=== PATIENT | female | born 1950 | race Caucasian/White ===

== ENCOUNTER 2019-08-20 06:33 | Inpatient (IN) | payer MEDICARE, BC, OTHER ==
[~2019-08-20] VITALS: Ht 162.6 cm; Wt 113.6 kg
[2019-08-20 06:59] LABS: BASOPHILS ABSOLUTE AUTO 0.06 K/mm3 (0.00-0.23); BASOPHILS PERCENT AUTO 0 % (0-2); EOSINOPHILS ABSOLUTE AUTO 0.28 K/mm3 (0.00-0.68); EOSINOPHILS PERCENT AUTO 2 % (0-6); Hematocrit 42.7 % (33.0-51.0); Hemoglobin 13.5 g/dL (11.5-16.0); IMMATURE GRAN ABSOLUTE AUTO 0.06 K/mm3 (0.00-0.10); IMMATURE GRAN PERCENT AUTO 0 % (0-1); LYMPHOCYTES ABSOLUTE AUTO 1.91 K/mm3 (0.84-5.20); LYMPHOCYTES PERCENT AUTO 13 % (21-46); MONOCYTES ABSOLUTE AUTO 0.68 K/mm3 (0.16-1.47); MONOCYTES PERCENT AUTO 5 % (4-13); Mean Corpuscular HGB 29.5 pg (26.0-34.0); Mean Corpuscular HGB Conc 31.6 g/dL (31.5-36.5); Mean Corpuscular Volume 93 fL (80-100); Mean Platelet Volume 10.8 fL (9.1-12.4); NEUTROPHILS ABSOLUTE AUTO 12.29 K/mm3 (1.96-9.15); NEUTROPHILS PERCENT AUTO 80 % (41-73); Platelet Count 202 K/mm3 (150-400); RDW Coefficient Variation 14.3 % (11.7-14.2); RDW Standard Deviation 48.8 fL (35.1-46.3); Red Blood Cell Count 4.57 M/mm3 (3.80-5.20); White Blood Cell Count 15.28 K/mm3 (4.00-11.30)
[2019-08-20 07:18] LABS: Alanine Aminotransfer (ALT/SGP 27 U/L (12-78); Albumin, Blood 3.4 g/dL (3.4-5.0); Albumin/Globulin Ratio 1.1 (0.8-1.8); Alk Phos 97 U/L (50-136); Anion Gap 6 mmol/L (6-16); Aspartate Aminotrans (AST/SGOT 24 U/L (12-37); Bilirubin, Total 0.3 mg/dL (0.1-1.0); Blood Urea Nitrogen 7 mg/dL (8-24); Bun/Creatinine Ratio 10.7 (12.0-20.0); CO2, Blood 27 mmol/L (21-32); Calcium, Blood 8.6 mg/dL (8.5-10.1); Chloride, Blood 106 mmol/L (98-108); Creatinine, Blood 0.65 mg/dL (0.40-1.00); Globulin, Blood 3.2 g/dL (2.2-4.0); Glomerular Filtration Rate >60 (60-); Glucose, Blood 121 mg/dL (70-99); Potassium, Blood 3.9 mmol/L (3.5-5.5); Sodium, Blood 139 mmol/L (136-145); Total Protein, Blood 6.6 g/dL (6.4-8.2); Troponin I <0.015 ng/mL (0.000-0.040)
[2019-08-20 07:26] LABS: Base Excess Venous 1.7 mmol/L; Bicarbonate Venous 24.3 mmol/L (24.0-30.0); PCO2 Venous 54.1 mmHg (38-42); PO2 Venous 38.1 mmHg (38-42); pH Blood Venous 7.32 (7.34-7.37)
[2019-08-20] MEDS ORDERED: Cymbalta20 MG PO ×2 (12:55→12:56)
[2019-08-20 12:56] LABS: CHOL/HDL RATIO 2.9; Cholesterol 174 mg/dL (50-200); HDL Cholesterol 60 mg/dL (>39); LDL/HDL RATIO 1.5; Low Density Lipoprotein Chol 91 mg/dL (0-110); Triglycerides 114 mg/dL (30-160); Very Low Density Lipoprot Chol 22 mg/dL (6-32)
[2019-08-20] MEDS ORDERED: OXYACE7.5T PO (12:56)
[2019-08-20] MEDS ORDERED: SYMBICORT 80-10.2 GM INH (12:58)
[2019-08-20] MEDS ORDERED: ALBU90OI INH (12:58)
[2019-08-20] MEDS ORDERED: IBUP600 PO (12:59)
[2019-08-20] MEDS ORDERED: LOVA40 PO (12:59)
[2019-08-20] MEDS ORDERED: CLON.5 PO (13:00)
[2019-08-20] MEDS ORDERED: GABA400 PO (13:00)
[2019-08-20] MEDS ORDERED: MIRT15 PO (13:00)
[2019-08-20] MEDS ORDERED: ASPIR 8181 M1 PO (13:01)
[2019-08-20] MEDS ORDERED: SPIRIVA RESPIMAT4 G3 INH (13:02)
[2019-08-20 15:52] LABS: Source, Urine Voided
[2019-08-20 16:03] LABS: Appearance, Urine Hazy (Clear); Bilirubin, Urine Neg (Neg); Blood, Urine 3+ (Neg); Color, Urine Yellow (P-Yellow); Glucose Qualitative, Urine Neg (Neg); Ketones, Urine Neg (Neg); Leukocyte Esterase, Urine Neg (Neg); Nitrite, Urine Neg (Neg); Protein, Urine 1+ (Neg); Urobilinogen, Urine NORM (Normal)
[2019-08-20 16:11] LABS: Bacteria Few /hpf; Squamous Epithelial Cells Few /hpf (Few); White Blood Cells, Urine 0-2 /hpf (0-5)
--- NOTE | 2019-08-20 16:14 | NUR ---
SHIFT SUMMARY PATIENT IS ALERT AND ORIENTED. SHE WAS ADMITTED FOR SHORTNESS OF BREATH WHICH HAS RESOLVED. SHE STATES THAT IT WAS JUST WORSE THAN NORMAL. SHE DOES HAVE COPD AND ASTHMA. SHE HAD PAIN THAT WAS IN HER ARM AND RADIATED TO HER NECK. NITRO DID NOT FIX IT SO SHE CAME TO THE ER. SHE WAS GIVEN NITRO IN THE AMBULANCE AND IT STILL DID NOT RESOLVE. PATIENT IS PLEASANT, SHE HAD PERCOCET DOWNSTAIRS. SHE DENIES ANY CONCERNS AT THIS TIME AND AWAITING ECHO RESULTS. SHE IS CURRENTLY RUNNING FLUIDS.
--- NOTE | 2019-08-21 04:33 | NUR ---
SHIFT SUMMARY A/O, ABLE TO MAKE NEEDS KNOWN. COOPERATIVE WITH CARE. CALLS AND ANSWERS QUESTIONS APPROPRIATELY. NO C/O PAIN/DISCOMFORT. INDEPENDENT IN ROOM. APPEARED TO REST MUCH OF SHIFT. STATES EAGER TO GO HOME. VSS/AFEBRILE. TELE RUNNING SR IN 70s. NO ACUTE CHANGES NOTED OVERNIGHT. BED REAMINED IN LOWEST POSITION. CALL LIGHT AND BELONGINGS WITHIN REACH. WCTM. REPORT TO ONCOMING RN.
--- NOTE | 2019-08-21 17:13 | NUR ---
PATIENT IS ALERT AND ORIENTED AND COOPERATIVE WITH CARE. SHE IS INDEPENDENT IN HER ROOM. MAKES HE NEEDS KNOWN. HER DAUGHTER AND GRANDAUGHTER VISITIED HER TODAY. SHE IS ON 3L O2 VIA NC. WILL CONTINUE TO MONITOR
--- NOTE | 2019-08-21 20:36 | NUR ---
ASSUMED CARE. MONA IS AOX3, BUT IS VERY DEPRESSED. SHE TALKED ABOUT HER DEPRESSION SOME AND HOW MOST PEOPLE DONT UNDERSTAND THE SEVERITY OF IT. OR HOW THINGS ARE WHEN MEDS GET ALL SCREWED UP. PROVIDED THERAPUTIC LISTENING IT APPEARED SHE NEEDED TO FENT ABOUT SOME OF HER LIFE. BEING SICK JUST REMINDED HER OF BEING DOWN AND BLUE. ENCOURAGED POSITIVE THINKING AND STRUCTURE. DISCUSSD TONIGHTS EVENTS, LETTING HER KNOW WHAT WILL BE HAPPENING. LUNG SOUNDS WITH WHEEZES IN THE UPPER BASES, SOUNDS CLEAR IN BASES, BUT STATES SHE FEELS SHE HAS COUGH THINGS OUT. ENCOURAGED DEEP BREATHING. DISCUSSED FLUTTER VALVE WITH RT. DENIED PAIN OR DISCOMFORT. GOT HER SOME ICE. MEDICATED PER EMAR. WILL CONTINUE TO MONITOR.
--- NOTE | 2019-08-22 01:54 | NUR ---
SHIFT SUMMARY 08/21 013 PT WAS A/O FOR VITALS. PT HAS SLEPT THE WHOLE SHIFT SUINCE THEN. WHEN AWAKE INDEP IN ROOM
--- NOTE | 2019-08-22 05:20 | NUR ---
SHIFT SUMMARY: MONA HAD A UNEVENTFUL NIGHT. LUNG SOUNDS WITH WHEEZES IN UPPER LOBES AND DIMINSIHED IN THE BASES. COUGH IS PRODUCTIVE AT TIMES. RT PROVIDING BREATHING TREATMENT. USES INSPIROMETER PRN. HAS SEVERE DEPRESSION AND WAS CRYING AT START OF SHIFT. WAS ABLE TO GET HER TO CALM DOWN. STATES SHE SEES HER PRIMARY FOR IT. IS ON ANTIDEPRESSION MEDICATIONS AND ANTI-ANXIETY. VS WNL. AFEBRILE. SLEPT MOST OF THE SHIFT. HAD NO ACUTE CHANGES. WILL REPORT OFF TO DAY SHIFT.
[2019-08-22] MEDS ORDERED: GUAI600T33 PO (14:08)
[2019-08-22] MEDS ORDERED: IPRAT-ALBUT 0.5-3 ML INH (14:08)
[2019-08-22] MEDS ORDERED: PRED20 PO (14:09)
== END 2019-08-22 14:54 | disposition home or self-care (01) | DRG 189 ==
LOC: ER 06:33 → MEDS 12:29
PROVIDERS: Emergency Medicine; ADMIT Internal Medicine
DX: J96.01 Acute respiratory failure with hypoxia (principal); J44.1 Chronic obstructive pulmonary disease with (acute) exacerbation; J96.02 Acute respiratory failure with hypercapnia; K21.9 Gastro-esophageal reflux disease without esophagitis; F32.9 Major depressive disorder, single episode, unspecified; F41.9 Anxiety disorder, unspecified; F17.210 Nicotine dependence, cigarettes, uncomplicated; M46.82 Other specified inflammatory spondylopathies, cervical region; E78.5 Hyperlipidemia, unspecified; Z79.82 Long term (current) use of aspirin
CPT/HCPCS: 36415; 71046; 80053; 80061; 81001; 82803; 83880; 84145; 84484; 85025; 85379; 93005; 93010; 93306; 94640; 94760; 96361; 96372; 96374; 96375; 96376; 99285-25; A9270-GY; G0378; J1170; J1650; J2405; J2920; J2930; J7030